=== PATIENT | female | born 2000 | race Hispanic/Latino ===

== ENCOUNTER 2021-04-17 19:20 | Emergency (ER) | payer OTHER, SELFPAY | END 2021-04-17 20:04 | disposition home or self-care (01) | LOC: CSHERS 19:20 | DX: S80.01XA Contusion of right knee, initial encounter (principal); W19.XXXA Unspecified fall, initial encounter ==

== ENCOUNTER 2021-08-20 15:56 | Emergency (ER) | payer OTHER, SELFPAY ==
[2021-08-20 16:51] LABS: #Monocytes 0.7 10x3/uL (0.0-1.1); #Neutrophils 14.4 10x3/uL (1.5-8.4); %Basophils 0.2 % (0.0-2.0); %Eosinophils 0.1 % (0.0-6.0); %Monocytes 4.3 % (0.0-10.0); %Neutrophils 86.9 % (40.0-75.0); Hemoglobin 12.9 g/dL (12.0-15.5); Mean Corpuscular HGB CONC 33.9 g/dL (32.0-36.0); Mean Corpuscular Hemoglobin 29.9 pg (27.0-33.0); Mean Corpuscular Volume 88.2 fl (81.6-98.3); Mean Platelet Volume 11.7 fl (7.4-10.4); Platelet Count 176 10x3/uL (150-450); Red Blood Cell (RBC) Count 4.32 10x6/uL (3.90-5.03); White Blood Cell (WBC) Count 16.6 10x3/uL (3.5-10.5)
[2021-08-20 17:06] LABS: ALT (SGPT) 11 U/L (8-55); AST (SGOT) 15 U/L (5-34); Albumin 3.9 g/dL (3.5-5.0); Alkaline Phosphatase 70 U/L (40-110); Anion Gap 15 mmol/L (10-20); BUN (Urea Nitrogen) 7 mg/dL (7.0-18.7); Bilirubin, Total 0.3 mg/dL (0.2-1.2); Calc. Creatinine Clearance 0 mL/min (70-130); Calcium 9.3 mg/dL (7.8-10.44); Carbon Dioxide 22 mmol/L (22-29); Chloride 104 mmol/L (98-107); Globulin 3.4 g/dL (2.4-3.5); Glucose 81 mg/dL (70-105); Protein, Total 7.3 g/dL (6.0-8.3); Sodium 137 mmol/L (136-145)
[2021-08-20 17:31] LABS: Bilirubin Neg (Negative); Blood, Urine Negative (Negative); Clarity Clear (Clear); Glucose, Urine (Dipstick) Normal (Negative); Ketone, Urine 50 mg/dL (Negative); Leukocyte Negative (Negative); Nitrite Negative (Negative); Protein, Urine (Dipstick) Negative (Neg-Trace); Urobilinogen Normal mg/dL (Less than 2)
[2021-08-20] MEDS ORDERED: Metoclopramide HCl 10 MG/2 ML VIAL ONE (17:40)
[2021-08-20] MEDS ORDERED: diphenhydrAMINE 50 MG/ML VIAL ONE (17:40)
== END 2021-08-20 19:50 | disposition home or self-care (01) ==
LOC: CSHERS 15:56
DX: O99.891 Other specified diseases and conditions complicating pregnancy (principal); R55 Syncope and collapse; R51.9 Headache, unspecified; Z3A.21 21 weeks gestation of pregnancy
CPT/HCPCS: 36415; 80053; 81003; 84484; 85025; 85379; 93005; 96374; 96375; J1200; J2765

== ENCOUNTER 2021-08-21 17:24 | Inpatient (IN) | payer OTHER ==
[2021-08-21] MEDS ORDERED: diphenhydrAMINE 50 MG/ML VIAL ONE (18:22)
[2021-08-21] MEDS ORDERED: Metoclopramide HCl 10 MG/2 ML VIAL ONE (18:22)
[2021-08-21] MEDS ORDERED: Acetaminophen 500 MG TAB ONE (18:22)
[2021-08-21] MEDS ORDERED: Magnesium 2 GM/50 ML BAG (IN WATER) ONE ×2 (18:23→19:24)
[2021-08-21 18:47] LABS: #Monocytes 0.5 10x3/uL (0.0-1.1); #Neutrophils 11.2 10x3/uL (1.5-8.4); %Basophils 0.2 % (0.0-2.0); %Lymphocytes 6.7 % (18.0-47.0); %Monocytes 4.1 % (0.0-10.0); %Neutrophils 88.6 % (40.0-75.0); Hemoglobin 12.4 g/dL (12.0-15.5); Mean Corpuscular HGB CONC 32.9 g/dL (32.0-36.0); Mean Corpuscular Hemoglobin 29.8 pg (27.0-33.0); Mean Corpuscular Volume 90.6 fl (81.6-98.3); Platelet Count 184 10x3/uL (150-450); RBC Distribution Width 15.2 % (11.5-14.5); Red Blood Cell (RBC) Count 4.16 10x6/uL (3.90-5.03); White Blood Cell (WBC) Count 12.6 10x3/uL (3.5-10.5)
[2021-08-21 18:54] LABS: SARS-CoV-2 NAA Rapid Test Not Detected (NotDetected)
[2021-08-21 18:56] LABS: ALT (SGPT) 15 U/L (8-55); AST (SGOT) 17 U/L (5-34); Albumin 3.8 g/dL (3.5-5.0); Alkaline Phosphatase 68 U/L (40-110); Anion Gap 15 mmol/L (10-20); BUN (Urea Nitrogen) 6 mg/dL (7.0-18.7); Bilirubin, Total 0.3 mg/dL (0.2-1.2); CK (CPK) 31 U/L (29-168); Calc. Creatinine Clearance 0 mL/min (70-130); Calcium 8.9 mg/dL (7.8-10.44); Carbon Dioxide 19 mmol/L (22-29); Chloride 102 mmol/L (98-107); Globulin 3.8 g/dL (2.4-3.5); Glucose 108 mg/dL (70-105); Magnesium 1.6 mg/dL (1.6-2.6); Protein, Total 7.6 g/dL (6.0-8.3); Sodium 133 mmol/L (136-145)
[2021-08-21] MEDS ORDERED: NS 0.9% w/ 40 MEQ KCL 1,000 ML IV ONE (19:25)
[2021-08-21] MEDS ORDERED: Cefepime 2 GM VIAL ONE (20:08)
[2021-08-21 20:38] LABS: Bilirubin Neg (Negative); Blood, Urine Negative (Negative); Clarity Clear (Clear); Glucose, Urine (Dipstick) Normal (Negative); Ketone, Urine 50 mg/dL (Negative); Leukocyte Negative (Negative); Nitrite Negative (Negative); Protein, Urine (Dipstick) Negative (Neg-Trace); Urobilinogen Normal mg/dL (Less than 2)
[2021-08-21] MEDS ORDERED: Calcium Carbonate 500 MG ChewTAB PO PRN (20:52)
[2021-08-21] MEDS ORDERED: hydrALAZINE 20 MG/ML VIAL SLOW IVP PRN (20:52)
[2021-08-21] MEDS ORDERED: Acetaminophen 650 MG Suppository PR PRN (20:52)
[2021-08-21] MEDS ORDERED: Ondansetron PF 4 MG/2 ML Vial IVP PRN (20:52)
[2021-08-21] MEDS ORDERED: Acetaminophen 325 MG TAB PO PRN (20:52)
[2021-08-21] MEDS ORDERED: Promethazine HCl 25 MG/ML VIAL IM PRN (20:52)
[2021-08-21] MEDS ORDERED: Piperacillin/Tazobactam 3.375 GM in Sodium Chloride 0.9% 100 ML IVPB SCH ×2 (22:00→23:59)
[2021-08-21 22:15] LABS: Hep B Surf Ag Non-Reactive S/CO (NonReactive); Syphilis Antibody Nonreactive (Nonreactive); Syphilis Antibody Index 0.04 S/CO (<1.00 Non-Reactive)
[2021-08-21 22:16] LABS: HBSAg Index 0.17 S/CO (0-0.99)
[2021-08-21] MEDS: metroNIDAZOLE 500 MG in Premix Bag 1 BAG IVPB SCH (23:46)
[2021-08-21] MEDS ORDERED: diphenhydrAMINE 50 MG/ML VIAL IVP PRN (23:49)
[2021-08-22] MEDS: Lactated Ringer's 1,000 ML IV SCH ×4 (00:24→22:23)
[2021-08-22 01:18] VITALS: BMI 39.6
[2021-08-22] MEDS: Piperacillin/Tazobactam 3.375 GM in Sodium Chloride 0.9% 100 ML IVPB SCH ×3 (02:34→17:19)
[2021-08-22 05:01] LABS: Hemoglobin 10.4 g/dL (12.0-15.5); Mean Corpuscular HGB CONC 33.5 g/dL (32.0-36.0); Mean Corpuscular Hemoglobin 29.7 pg (27.0-33.0); Mean Corpuscular Volume 88.6 fl (81.6-98.3); Mean Platelet Volume 11.6 fl (7.4-10.4); Platelet Count 168 10x3/uL (150-450); RBC Distribution Width 15.4 % (11.5-14.5); White Blood Cell (WBC) Count 13.7 10x3/uL (3.5-10.5)
[2021-08-22 05:07] LABS: MDiff Complete? YES; Manual Diff?? YES
[2021-08-22 05:11] LABS: CRP (Inflammatory) 9.95 mg/dL (= or < 0.5); Magnesium 1.9 mg/dL (1.6-2.6)
[2021-08-22 05:15] LABS: ALT (SGPT) 12 U/L (8-55); AST (SGOT) 13 U/L (5-34); Alkaline Phosphatase 67 U/L (40-110); Anion Gap 12 mmol/L (10-20); BUN (Urea Nitrogen) 4 mg/dL (7.0-18.7); Bilirubin, Total 0.3 mg/dL (0.2-1.2); Calc. Creatinine Clearance 219 mL/min (70-130); Calcium 7.9 mg/dL (7.8-10.44); Carbon Dioxide 17 mmol/L (22-29); Chloride 109 mmol/L (98-107); Globulin 3.1 g/dL (2.4-3.5); Glucose 109 mg/dL (70-105); Potassium 3.7 mmol/L (3.5-5.1); Protein, Total 6.1 g/dL (6.0-8.3); Sodium 134 mmol/L (136-145)
[2021-08-22 06:36] LABS: Band 15 % (5-11); Lymphocytes 9 % (21-51); Monocytes 4 % (0-10); Neutrophil 72 % (42-75)
[2021-08-22 06:37] LABS: Anisocytosis SLIGHT = 6-15 cells (100X) (0-5/hpf); Macrocytosis SLIGHT = 6-15 cells (100X) (0-5/hpf); Microcytosis SLIGHT = 6-15 cells (100X) (0-5/hpf); Platelet Morphology Comment Appears Adequate
[2021-08-22] MEDS ORDERED: Aspirin 81 mg Enteric Coated Tablet PO SCH (09:00)
[2021-08-22] MEDS: Prenatal Vitamin 1 TAB PO SCH (10:15)
[2021-08-22] MEDS: metroNIDAZOLE 500 MG in Premix Bag 1 BAG IVPB SCH ×2 (10:16→22:23)
[2021-08-22] MEDS ORDERED: Fioricet 325/50/40 mg Tablet PO PRN ×2 (14:05→14:51)
[2021-08-23] MEDS: Piperacillin/Tazobactam 3.375 GM in Sodium Chloride 0.9% 100 ML IVPB SCH (01:49)
[2021-08-23] MEDS: Lactated Ringer's 1,000 ML IV SCH (06:30)
[2021-08-23 07:06] LABS: #Monocytes 0.6 10x3/uL (0.0-1.1); #Neutrophils 6.5 10x3/uL (1.5-8.4); %Basophils 0.2 % (0.0-2.0); %Eosinophils 0.3 % (0.0-6.0); %Lymphocytes 20.2 % (18.0-47.0); %Monocytes 6.5 % (0.0-10.0); %Neutrophils 72.5 % (40.0-75.0); Hemoglobin 10.4 g/dL (12.0-15.5); Mean Corpuscular Hemoglobin 29.5 pg (27.0-33.0); Mean Corpuscular Volume 89.5 fl (81.6-98.3); Mean Platelet Volume 11.4 fl (7.4-10.4); Platelet Count 167 10x3/uL (150-450); RBC Distribution Width 15.7 % (11.5-14.5); Red Blood Cell (RBC) Count 3.52 10x6/uL (3.90-5.03)
[2021-08-23 07:49] LABS: Anion Gap 13 mmol/L (10-20); BUN (Urea Nitrogen) 5 mg/dL (7.0-18.7); CRP (Inflammatory) 11.71 mg/dL (= or < 0.5); Calc. Creatinine Clearance 216 mL/min (70-130); Calcium 8.3 mg/dL (7.8-10.44); Carbon Dioxide 20 mmol/L (22-29); Chloride 106 mmol/L (98-107); Glucose 82 mg/dL (70-105); Potassium 3.5 mmol/L (3.5-5.1); Sodium 135 mmol/L (136-145)
[2021-08-23] MEDS ORDERED: Aspirin 81 mg Enteric Coated Tablet PO SCH (09:00)
[2021-08-23] MEDS: Prenatal Vitamin 1 TAB PO SCH (09:30)
[2021-08-23 12:28] LABS: Chlam.trachomatis by PCR,Urine Not Detected (NotDetected)
[2021-08-23 12:51] VITALS: BP 100/51; TEMP 96.7
== END 2021-08-23 16:00 | disposition home or self-care (01) | DRG 831 ==
LOC: CSHERS 17:24 → CSHLD/OP 17:24 → CSHERS 17:24 → CSHLD/OP 17:24 → EDSTATUS 17:41 → CSHTELE 21:17
PROVIDERS: ADMIT Obstetrics & Gynecology; ATTEND Student in an Organized Health Care Education/Training Program
DX: O98.812 Other maternal infectious and parasitic diseases complicating pregnancy, second trimester (principal); A41.89 Other specified sepsis; O99.412 Diseases of the circulatory system complicating pregnancy, second trimester; E87.1 Hypo-osmolality and hyponatremia; O36.8320 Maternal care for abnormalities of the fetal heart rate or rhythm, second trimester, not applicable or unspecified; E87.6 Hypokalemia; O99.280 Endocrine, nutritional and metabolic diseases complicating pregnancy, unspecified trimester; O26.892 Other specified pregnancy related conditions, second trimester; R03.0 Elevated blood-pressure reading, without diagnosis of hypertension; R51.9 Headache, unspecified; Z20.822 Contact with and (suspected) exposure to COVID-19; Z67.41 Type O blood, Rh negative; Z79.899 Other long term (current) drug therapy; Z3A.21 21 weeks gestation of pregnancy; Z83.3 Family history of diabetes mellitus; Z82.49 Family history of ischemic heart disease and other diseases of the circulatory system; Z98.891 History of uterine scar from previous surgery
CPT/HCPCS: 36415; 71045; 71275; 80048; 80053; 81003; 82550; 83605; 83735; 83880; 84145; 84443; 84484; 85025; 85379; 86140; 86780; 86850; 86900; 86901; 87040; 87086; 87340; 87633; 93005; 94760; 96365; 96366; 96367; 96368; 96375; J0692; J1200; J2543; J2765; J3475; J3480; J3490; J7120

== ENCOUNTER 2021-12-29 05:35 | Day surgery (SDC) | payer OTHER ==
[2021-12-29] MEDS ORDERED: hydrALAZINE 20 MG/ML VIAL SLOW IVP PRN (06:27)
[2021-12-29 06:49] VITALS: BMI 42.1
[2021-12-29] MEDS ORDERED: Promethazine HCl 25 MG/ML VIAL IM PRN (07:51)
[2021-12-29] MEDS ORDERED: Ondansetron PF 4 MG/2 ML Vial IVP PRN (07:51)
[2021-12-29] MEDS ORDERED: Lactated Ringer's 1,000 ML IV SCH (08:00)
[2021-12-29] MEDS ORDERED: Lidocaine 1% (PF) 30 ML VIAL SC PRN (08:34)
[2021-12-29] MEDS ORDERED: Dextrose 5%-Lactated Ringers 1,000 ML IV SCH (08:45)
[2021-12-29] MEDS ORDERED: NS w/ Oxytocin 30 units 500 ML IV SCH (08:45)
[2021-12-29 11:28] LABS: Hemoglobin 12.1 g/dL (12.0-15.5); Mean Corpuscular HGB CONC 33.5 g/dL (32.0-36.0); Mean Corpuscular Hemoglobin 29.9 pg (27.0-33.0); Mean Corpuscular Volume 89.1 fl (81.6-98.3); Mean Platelet Volume 12.7 fl (7.4-10.4); Platelet Count 116 10x3/uL (150-450); RBC Distribution Width 15.5 % (11.5-14.5); Red Blood Cell (RBC) Count 4.05 10x6/uL (3.90-5.03); White Blood Cell (WBC) Count 9.5 10x3/uL (3.5-10.5)
[2021-12-29 11:41] LABS: Hep B Surf Ag Non-Reactive S/CO (NonReactive)
[2021-12-29 11:42] LABS: Syphilis Antibody Nonreactive (Nonreactive); Syphilis Antibody Index 0.03 S/CO (<1.00 Non-Reactive)
== END 2021-12-29 17:01 | disposition home or self-care (01) ==
LOC: CSHLD/OP 05:35
PROVIDERS: ATTEND Obstetrics & Gynecology
DX: O47.03 False labor before 37 completed weeks of gestation, third trimester (principal); O99.513 Diseases of the respiratory system complicating pregnancy, third trimester; J45.909 Unspecified asthma, uncomplicated; O99.213 Obesity complicating pregnancy, third trimester; E66.9 Obesity, unspecified; Z67.41 Type O blood, Rh negative; Z79.82 Long term (current) use of aspirin; Z79.899 Other long term (current) drug therapy; Z3A.40 40 weeks gestation of pregnancy
CPT/HCPCS: 36415; 76819; 85027; 86780; 86850; 86900; 86901; 87340; 99285